=== PATIENT | male | born 1975 | race Caucasian/White ===

== ENCOUNTER 2016-07-02 19:24 | Observation (INO) | payer OTHER ==
[~2016-07-02] VITALS: Ht 180.3 cm; Wt 104.9 kg
[~2016-07-02 19:24] MED LIST: FENTANYL 100 MCG/2 ML AMP ONE; LIDOCAINE 2% SYR 5 ML IV ONE; METOCLOPRAMIDE 10 MG/2 ML VIAL ONE; ONDANSETRON 4 MG VIAL ONE; PROPOFOL 50ML VIAL IV ONE; ROCURONIUM 50 MG VIAL IV ONE; SUCCINYLCHOLINE 20 MG/ML VL ONE
[2016-07-02] MEDS ORDERED: OPTIRAY 350 100 ML VIAL HMH IV ONE (19:25)
[2016-07-02] MEDS ORDERED: humuLIN REG INSULIN ONE (20:33)
[2016-07-02] MEDS ORDERED: DILAUDID 1 MG/ML AMP ONE ×2 (20:34→23:49)
[2016-07-02] MEDS ORDERED: SODIUM CHLORIDE 0.9% 1,000 ML ONE (20:34)
[2016-07-02] MEDS ORDERED: VANCOMYCIN 2,000 MG in SODIUM CHLORIDE 0.9% 500 ML IV ONE (20:56)
[2016-07-02] MEDS ORDERED: DIPHENHYDRAMINE 50 MG/ML VIAL IV ONE (23:35)
[2016-07-02] MEDS ORDERED: MORPHINE 2 MG/ML SYR IV PRN (23:45)
[2016-07-02] MEDS ORDERED: ONDANSETRON 4 MG VIAL IV PUSH PRN (23:45)
[2016-07-02] MEDS ORDERED: SALINE FLUSH 10 ML FLUSH PRN (23:45)
[2016-07-03] VITALS (21 sets, daily range): BP systolic 111–143; RESP 12–24; TEMP 97.8–98.8; Ht 180.3 cm; Wt 104.9 kg
[2016-07-03] MEDS ORDERED: DIPHENHYDRAMINE 50 MG/ML VIAL IV PRN (00:05)
[2016-07-03] MEDS ORDERED: ARTIF TEARS OP SOLN 0.4ML EYE EACH PRN (00:10)
[2016-07-03] MEDS ORDERED: DEXTROSE 50% SYRINGE 50 ML IV PRN (00:10)
[2016-07-03] MEDS ORDERED: GLUCAGON 1 MG VIAL IM PRN (00:10)
[2016-07-03] MEDS: FAMOTIDINE 20 MG INJ IV SCH ×2 (00:30→08:26)
[2016-07-03] MEDS: MORPHINE 4 MG/ML SYR IV PRN ×6 (02:04→17:57)
[2016-07-03] MEDS: SODIUM CHLORIDE 0.9% 1,000 ML IV SCH ×2 (04:40→08:31)
[2016-07-03] MEDS ORDERED: SODIUM CHLORIDE 0.9% FLUSH BAG 500 ML IV SCH (06:00)
[2016-07-03] MEDS: GABAPENTIN 300 MG CAP PO SCH ×3 (06:15→11:00)
[2016-07-03] MEDS ORDERED: BUPIVACA/EPI 0.25% PF 30ML NERVEBLOCK ONE (07:51)
[2016-07-03] MEDS ORDERED: LIDOCAINE 1% 20ML NERVEBLOCK ONE (07:51)
[2016-07-03] MEDS ORDERED: SALINE FLUSH 10 ML FLUSH SCH (08:00)
[2016-07-03] MEDS ORDERED: VANCOMYCIN 1,000 MG in SODIUM CHLORIDE 0.9% 250 ML IV SCH (08:00)
[2016-07-03] MEDS ORDERED: LIDOCAINE 1% BUFFERED 1 ML SYR INTRADERM PRN (08:30)
[2016-07-03] MEDS ORDERED: GLYCOPYRROLATE 0.2 MG/ML VIAL IV ONE (08:30)
[2016-07-03] MEDS ORDERED: LACT RINGERS 1,000 ML IV SCH (08:30)
[2016-07-03] MEDS ORDERED: MIDAZOLAM 2 MG/2 ML INJ IV ONE (08:30)
[2016-07-03] MEDS ORDERED: METOPROLOL XL 100 MG TAB PO SCH (09:00)
[2016-07-03] MEDS ORDERED: amLODIPine 10 MG TAB PO SCH (09:00)
[2016-07-03] MEDS ORDERED: ESCITALOPRAM 10 MG TAB PO SCH (09:00)
[2016-07-03] MEDS ORDERED: VALSARTAN 80 MG TAB PO SCH (09:00)
[2016-07-03] MEDS ORDERED: cloNIDine 0.2 MG TAB PO SCH ×2 (09:00→17:00)
[2016-07-03] MEDS ORDERED: ASPIRIN 81 MG CHEW TAB PO SCH (09:00)
[2016-07-03] MEDS ORDERED: FENOFIBRATE 48 MG TAB PO SCH (09:00)
[2016-07-03] MEDS ORDERED: NEB-ALBUTEROL 2.5 MG/3 ML INH ONE (11:55)
[2016-07-03] MEDS ORDERED: MORPHINE 4 MG/ML SYR IV PRN (14:40)
[2016-07-03] MEDS ORDERED: MORPHINE 2 MG/ML SYR IV PRN (14:40)
[2016-07-03] MEDS ORDERED: OXYCODONE 5 MG TAB PO PRN (14:40)
[2016-07-03] MEDS ORDERED: DILAUDID 1 MG/ML AMP IV PRN (14:40)
[2016-07-03] MEDS ORDERED: ONDANSETRON 4 MG VIAL IV PRN (14:40)
[2016-07-03] MEDS ORDERED: MEPERIDINE 25 MG/ML IV PRN (14:40)
[2016-07-03] MEDS ORDERED: TEMAZEPAM 15 MG CAP PO SCH (21:00)
[2016-07-03] MEDS ORDERED: GABAPENTIN 600 MG TAB PO SCH (21:00)
== END 2016-07-03 14:36 | disposition home or self-care (01) ==
LOC: ENRESERV → ENRESERVDT → ENRESERVTM → ER 19:24 → EMR 23:45 → 3S 07-03 00:39
PROVIDERS: ADMIT Surgery; ATTEND Surgery
DX: N49.2 Inflammatory disorders of scrotum (principal); E11.65 Type 2 diabetes mellitus with hyperglycemia; I10 Essential (primary) hypertension; J45.909 Unspecified asthma, uncomplicated; Z87.891 Personal history of nicotine dependence; D75.1 Secondary polycythemia; K21.9 Gastro-esophageal reflux disease without esophagitis; G43.909 Migraine, unspecified, not intractable, without status migrainosus; F32.9 Major depressive disorder, single episode, unspecified; Z79.82 Long term (current) use of aspirin
CPT/HCPCS: 36415; 55100; 72193; 80048; 80053; 82947; 85025; 87071; 94640; 96361; 96365; 96366; 96372; 96375; 96376; 99284; G0378; J1170; J2001; J2250; J2270; J2405; J2704; J3010; J7040; J7050; Q9967